=== PATIENT | female | born 1955 | race Caucasian/White ===

== ENCOUNTER 2016-12-21 10:04 | Day surgery (SDC) | payer OTHER, BC ==
[~2016-12-21 10:04] MED LIST: ADVAIR 25028 BLISTE1 PO; ALBUTEROL SULF8.5 GM IH; ALDACTONE100 M1 PO; BENADRYL25 M3 PO; BISOPROLOL/HCTZ1 TAB PO; BYSTOLIC10 M1 PO; CLARITIN-D 121 EAC1 PO; CLONAZEPAM PO; COLACE100 M1 PO; COZAAR100 M1 PO; CYMBALTA20 M1 PO; CYMBALTA20 MG PO; EPIKLOR20 MEQ PO; ESTRADIOL1 M1 PO; FIORICET 50-301 EAC1 PO; FLECAINIDE ACET50 M1 PO; FLUTICASONE PRO16 GM NS; IBUPROFEN600 MG PO; KLONOPIN1 MG PO; LINZESS72 MCG PO; LOMOTIL1 TA1 PO; MUCINEX600 MG PO; NABUMETONE500 M1 PO; NASONEX17 G1; NORCO 5/325 TAB1 TAB PO; NORVASC5 M2 PO; NORVASC5 MG PO; OMEGA 3 FISH O1 EACH PO; OMEPRAZOLE20 M2 PO; OMEPRAZOLE20 M4 PO; PREMARIN0.9 MG PO; PROBIOTIC1 EACH PO; SENNA8.6 M2 PO; SINGULAIR10 M1 PO; SINGULAIR10 MG PO; SKELAXIN800 MG PO; SYMBICORT; SYNTHROID100 MCG PO; SYNTHROID137 MC1 PO; TRANDOLAPRIL1 MG PO; TUDORZA PRESS400 MC1 INH; ULTRAM50 M1 PO; ULTRAM50 MG PO; VENTOLIN HFA18 G2 PO; VITAMIN D50000 UNI2 PO; VITAMIN D50000 UNIT PO; [UNRECOGNIZED DRUG - OTHER] PO
[2016-12-22] MEDS ORDERED: KEFLEX500 M4 PO (08:20)
[2016-12-22] MEDS ORDERED: ROBINUL1 M1 PO (08:20)
[2016-12-22] MEDS ORDERED: NORCO 5-325 TA1 EACH PO (08:21)
[2016-12-22] MEDS ORDERED: ZOFRAN4 M2 PO (08:21)
== END 2016-12-22 12:10 ==
LOC: SHSB 10:04 → ORW 11:58 → PACU 15:16 → 5WD 16:50
PROC: 0CB80ZZ Excision of Right Parotid Gland, Open Approach (ICD-10-PCS; principal; 2016-12-21)
PROC: 00BM0ZZ Excision of Facial Nerve, Open Approach (ICD-10-PCS; 2016-12-21)
DX: D11.0 Benign neoplasm of parotid gland (principal); I10 Essential (primary) hypertension; R55 Syncope and collapse; M79.7 Fibromyalgia; E03.9 Hypothyroidism, unspecified; F41.9 Anxiety disorder, unspecified; F32.9 Major depressive disorder, single episode, unspecified; J45.909 Unspecified asthma, uncomplicated; G47.30 Sleep apnea, unspecified; K21.9 Gastro-esophageal reflux disease without esophagitis; G43.909 Migraine, unspecified, not intractable, without status migrainosus; I47.1 Supraventricular tachycardia; E66.9 Obesity, unspecified; Z68.37 Body mass index [BMI] 37.0-37.9, adult; Z79.899 Other long term (current) drug therapy; Z88.1 Allergy status to other antibiotic agents; Z90.710 Acquired absence of both cervix and uterus; Z90.49 Acquired absence of other specified parts of digestive tract; Z90.89 Acquired absence of other organs; Z98.890 Other specified postprocedural states
CPT/HCPCS: J0690; J1100; J1170; J1650; J2060; J2405; J3010